=== PATIENT | female | born 1970 | race Caucasian/White ===

== ENCOUNTER → 2016-10-19 | Day surgery (SDC) | payer OTHER ==
[~2016-10-19] MED LIST: BUPIVACAINE HCL PF 0.5% 10 ML VIAL ONE; COLA100C3 PO; DOXY100C PO; DOXY100T17 PO; IBUP800T23 PO; KETOROLAC TROMETHAMINE 30 MG/ML (IVP) VIAL ONE; LACTATED RINGER'S 1000 ML INJ 1,000 ML ONE; MEPERIDINE HCL 25 MG/ML VIAL ONE; MIDAZOLAM HCL 2 MG/2 ML VIAL ONE; ONDANSETRON HCL 4 MG/2 ML VIAL IV PUSH ONE; OXYC1TAB63 PO; PROPOFOL 200 MG/20 ML AMP IV ONE; TAMO20TA4 PO; TAMO20TA6 PO; ceFAZolin 2 GM PREMIX 50 ML ONE
--- NOTE | 2016-10-19 14:15 | TN ---
cc: MAUREEN ROBERTS DATE OF SURGERY: 10/19/2016 PREOPERATIVE DIAGNOSIS Palpable nodule of the right chest wall post mastectomy for breast cancer. POSTOPERATIVE DIAGNOSIS Palpable nodule of the right chest wall post mastectomy for breast cancer. PROCEDURE PERFORMED Excision of right chest wall nodule. SURGEON Maureen Roberts ANESTHESIA General via LMA device. INDICATION The patient is a 46-year-old female who has had a mastectomy with immediate implant reconstruction for breast cancer. She developed a palpable nodule and ultrasound confirmed a 7 x 8 mm hypoechoic nodule extending from the skin to the implant capsule. She now presents for excisional biopsy of the nodule. FINDINGS At the time of surgery there was an easily identified palpable nodule at 8 o'clock, approximately 4 cm from the center of the chest wall. Grossly it resembled scar tissue and did not appear to be a suspicious malignant nodule. PROCEDURE After informed consent was obtained and site verification was performed, the patient was brought to the major operating room where she underwent general anesthesia via an LMA device. The right breast was prepped and draped in sterile fashion. The palpable nodule at 8 o'clock was easily identified and an elliptical incision overlying the nodule was made using sharp dissection. Further sharp and electrocautery dissection was then performed into the subcutaneous tissue and the remainder of the dissection was then performed using electrocautery to preserve the integrity of the implant. A small portion of the implant capsule was also removed and sent separately as a separate specimen and the skin and subcutaneous tissue as well as the implant capsule were then oriented with a stitch on the implant capsule and a second piece had a long suture laterally, a short suture superiorly, and the skin was anterior. Both specimens were sent separately for permanent pathologic evaluation. Hemostasis was easily obtained with electrocautery and the capsule was closed using interrupted 3-0 Vicryl sutures. The subcutaneous tissue was re-approximated using interrupted 3-0 Vicryls and the skin was closed using a 4-0 Monocryl subcuticular suture. Steri-Strips and a sterile dressing were applied. The patient tolerated the procedure well with minimal blood loss and she was extubated in the operating room and brought to the recovery room in good condition. All sponge and needle counts were correct at the conclusion of the case. Maureen Roberts MD CEW/LIZZY /2:02 PM /2:08 PM
== END | disposition home or self-care (01) ==
LOC: ESDC 11:16
PROVIDERS: ATTEND Surgery
DX: C79.81 Secondary malignant neoplasm of breast (principal); Z90.13 Acquired absence of bilateral breasts and nipples
CPT/HCPCS: 00400; 21552; 88305; J0690; J1885; J2175; J2250; J2405; J3010; J7120; 88361

== ENCOUNTER → 2016-11-28 | Outpatient (CLI) | payer OTHER ==
[~2016-11-28] MED LIST changes: -BUPIVACAINE HCL PF 0.5% 10 ML VIAL ONE; -KETOROLAC TROMETHAMINE 30 MG/ML (IVP) VIAL ONE; -LACTATED RINGER'S 1000 ML INJ 1,000 ML ONE; -MEPERIDINE HCL 25 MG/ML VIAL ONE; -MIDAZOLAM HCL 2 MG/2 ML VIAL ONE; -ONDANSETRON HCL 4 MG/2 ML VIAL IV PUSH ONE; -PROPOFOL 200 MG/20 ML AMP IV ONE; -ceFAZolin 2 GM PREMIX 50 ML ONE
[2016-11-28 12:02] LABS: AUTOMATED NEUTROPHIL # 4.9 TH/MM3 (1.8-7.7); BASOPHIL # 0.1 TH/MM3 (0-0.2); BASOPHIL % 0.7 % (0.0-2.0); EOSINOPHIL # 0.1 TH/MM3 (0-0.4); EOSINOPHIL % 1.1 % (0.0-4.0); HEMATOCRIT 41.7 % (35.0-46.0); HEMO FLAGS DIFF FINAL; MEAN CELL VOLUME 83.8 FL (80.0-100.0); MEAN CORPUSCULAR HGB CONC 33.5 % (32.0-36.0); MONO % 8.7 % (0.0-8.0); NEUT % 63.5 % (16.0-70.0); PLATELET COUNT 243 TH/MM3 (150-450); RED BLOOD COUNT 4.98 MIL/MM3 (4.00-5.30); RED CELL DISTRIBUTION WIDTH 13.3 % (11.6-17.2); WHITE BLOOD COUNT 7.7 TH/MM3 (4.0-11.0)
[2016-11-28 12:28] LABS: ANION GAP 10 MEQ/L (5-15); BICARBONATE 26.4 MEQ/L (21.0-32.0); BLOOD UREA NITROGEN 11 MG/DL (7-18); CHLORIDE 106 MEQ/L (98-107); GLOMERULAR FILTRATION RATE 81 ML/MIN (>89); GLUCOSE,FASTING 89 MG/DL (74-99); POTASSIUM 4.3 MEQ/L (3.5-5.1); SODIUM (NA) 142 MEQ/L (136-145)
[2016-11-28 12:32] LABS: BHCG SCREEN QUALITATIVE LESS THAN 1 MIU/ML (0-5)
[2016-11-28 13:26] LABS: BLOOD, URINE NEG (NEG); GLUCOSE,URINE NEG (NEG); KETONE, URINE NEG (NEG); MUCUS URINE FEW /lpf (OCC); NITRITE,URINE NEG (NEG); SQUAMOUS EPITHELIAL CELL URINE 7 /hpf (0-5); URINE COLOR YELLOW (YELLW/STRAW)
== END ==
LOC: CPRE 11:17
PROVIDERS: ATTEND Obstetrics & Gynecology
DX: Z01.812 Encounter for preprocedural laboratory examination (principal); R19.00 Intra-abdominal and pelvic swelling, mass and lump, unspecified site
CPT/HCPCS: 36415; 80048; 81001; 84703; 85025

== ENCOUNTER 2016-12-04 06:13 | Observation (INO) | payer OTHER ==
[~2016-12-04] VITALS: Ht 152.4 cm; Wt 69.0 kg
[2016-12-04] MEDS ORDERED: TAMO20TA6 PO (06:44)
[2016-12-04] MEDS ORDERED: DOXY100C PO (06:44)
[2016-12-04] MEDS ORDERED: ceFAZolin 2 GM PREMIX 50 ML IV SCH (06:45)
[2016-12-04 06:57] VITALS: BP 133/82; PULSE 80; RESP 18; TEMP 98.1; O2SAT 97
[2016-12-04] MEDS ORDERED: LACTATED RINGER'S 1000 ML IV SCH (07:00)
[2016-12-04] MEDS ORDERED: METOPROLOL TARTRATE 25 MG TAB PO PRN (07:00)
[2016-12-04] MEDS ORDERED: SODIUM CHLORID 0.9% 500 ML IV SCH (07:00)
[2016-12-04] MEDS ORDERED: INSULIN HUMAN REGULAR 1,000 UNITS/10 ML VIAL SQ PRN (07:00)
[2016-12-04] MEDS ORDERED: MIDAZOLAM HCL 2 MG/2 ML VIAL ONE (07:07)
[2016-12-04] MEDS ORDERED: fentaNYL CITRATE 250 MCG/5 ML AMP ONE (07:07)
[2016-12-04] MEDS ORDERED: APREPITANT 40 MG CAP ONE (07:33)
[2016-12-04] MEDS ORDERED: FAMOTIDINE 20 MG/2 ML VIAL ONE (07:57)
[2016-12-04] MEDS ORDERED: ACETAMINOPHEN 1000 MG/100 ML VIAL IV ONE (07:57)
[2016-12-04] MEDS ORDERED: BUPIVACAINE/EPINEPHRINE 0.25% 50 ML VIAL INFIL ONE (08:39)
[2016-12-04] MEDS ORDERED: *MEPERIDINE 25 MG INJ VIAL PERIprocedural Use ONLY ONE (11:47)
[2016-12-04] MEDS ORDERED: DO NOT ADM ANY ANTICOAGULANT DRUGS XX PRN (12:00)
[2016-12-04] MEDS ORDERED: ONDANSETRON HCL 4 MG/2 ML VIAL IV PUSH ONE (12:00)
[2016-12-04] MEDS ORDERED: NEOSTIGMINE 3 MG/3 ML SYR IV ONE (12:00)
[2016-12-04] MEDS ORDERED: LACTATED RINGER'S 1000 ML INJ 1,000 ML IV ONE (12:00)
[2016-12-04] MEDS ORDERED: PROPOFOL 200 MG/20 ML AMP IV ONE (12:00)
[2016-12-04] MEDS ORDERED: MEPERIDINE HCL 50 MG/ML VIAL ONE (12:01)
[2016-12-04] MEDS ORDERED: KETOROLAC TROMETHAMINE 30 MG/ML (IVP) VIAL ONE (12:26)
[2016-12-04] MEDS ORDERED: KETOROLAC TROMETHAMINE 30 MG/ML (IVP) VIAL IV PUSH ONE (12:26)
[2016-12-04] MEDS ORDERED: ONDANSETRON HCL 4 MG/2 ML VIAL IV PUSH PRN (12:45)
[2016-12-04] MEDS: oxyCODONE/ACETAMINOPHEN 5 MG/325 MG TAB PO PRN ×2 (14:19→19:43)
[2016-12-04 16:35] VITALS: BP 122/86; PULSE 66; RESP 18; TEMP 98.6
[2016-12-04] MEDS: MEPERIDINE HCL 50 MG/ML VIAL IM PRN ×2 (16:40→22:10)
[2016-12-04 19:43] VITALS: BP 102/66; PULSE 74; RESP 18; TEMP 97.6; O2SAT 100
[2016-12-05 00:39] VITALS: BP 91/57; PULSE 77; RESP 16; TEMP 97.9; O2SAT 94
[2016-12-05] MEDS: oxyCODONE/ACETAMINOPHEN 5 MG/325 MG TAB PO PRN ×3 (01:14→11:43)
[2016-12-05 04:58] VITALS: BP 116/76; PULSE 78; RESP 17; TEMP 97.7; O2SAT 93
--- NOTE | 2016-12-05 07:59 | HHI.PR ---
Subjective Remarks Doing well, pain is well controlled, eating well. Objective Vital Signs Vital Signs Date Time Temp Pulse Resp B/P Pulse Ox O2 Delivery O2 Flow Rate FiO2 12/05/16 04:58 97.7 78 17 116/76 93 12/05/16 00:39 97.9 77 16 91/57 94 12/04/16 19:43 97.6 74 18 102/66 100 12/04/16 16:35 98.6 66 18 122/86 12/04/16 15:00 97.6 82 12 119/70 98 Room Air 12/04/16 14:00 84 12 110/79 97 Room Air 12/04/16 13:30 89 14 119/68 97 Room Air 12/04/16 13:00 77 12 126/75 97 Room Air 12/04/16 12:45 80 12 124/71 97 Room Air 12/04/16 12:30 82 13 123/79 97 Room Air 12/04/16 12:15 92 14 130/81 98 Room Air 12/04/16 12:00 90 15 137/92 100 Room Air 12/04/16 11:45 98.0 113 13 154/98 100 Nasal Cannula 2 I/O 12/04/16 12/04/16 12/04/16 12/05/16 12/05/16 12/05/16 07:00 15:00 23:00 07:00 15:00 23:00 Intake Total 1400 ml 240 ml Output Total 1500 ml 525 ml Balance -100 ml 240 ml -525 ml Intake Oral 240 ml IV Total 1400 ml Output Urine Total 1400 ml 525 ml Estimated Blood Loss 100 ml Objective Remarks Chest is clear, regular rate and rhythm. Abdomen is soft and non-distended. Incisions are clean and dry. Ext no CCE. A/P Assessment and Plan Post Op Day 1 S/P TLH/BSO, frozen benign Doing well Home today and return to office in two weeks. Radha Woodward MD Dec 05, 2016 07:59
[2016-12-05] MEDS ORDERED: OXYC1TAB63 PO (08:03)
[2016-12-05] MEDS ORDERED: COLA100C3 PO (08:03)
[2016-12-05] MEDS ORDERED: IBUP800T23 PO (08:03)
--- NOTE | 2016-12-05 08:04 | HHI.DCPOC ---
Discharge Care Plan Your Health Problems Are: Pelvic pain Report Symptoms to Your Doctor -Temperate above 100.5 degrees -Redness, of incision or excessive or foul smelling drainage -Unusual pain or calf pain -Increased vaginal bleeding -Painful or difficulty urinating -Feelings of extreme sadness or anxiety after 2 weeks Goals to Promote Your Health * To prevent worsening of your condition and complications * To maintain your health at the optimal level Directions to Meet Your Goals Take your medications as prescribed Follow your dietary instruction Follow activity as directed Ensure plenty of rest for recovery Drink fluids for hydration Keep your appointments as scheduled Take your immunizations and boosters as scheduled If your symptoms worsen call your PCP, if no PCP go to Urgent Care Center or Emergency Room Smoking is Dangerous to Your Health. Avoid second hand smoke Call the 24-hour crisis hotline for domestic abuse at Radha Woodward MD Dec 05, 2016 08:04
[2016-12-05 08:27] VITALS: BP 114/78; PULSE 78; RESP 20; TEMP 98.4
[2016-12-05] MEDS: MEPERIDINE HCL 50 MG/ML VIAL IM PRN (08:27)
--- NOTE | 2016-12-05 09:48 | MP ---
cc: MARY HI DATE OF SURGERY 12/04/2016 PREOPERATIVE DIAGNOSIS History of recurrent breast cancer with ovarian cysts and thickened endometrium. POSTOPERATIVE DIAGNOSIS History of recurrent breast cancer with ovarian cysts and thickened endometrium with frozen section reported as benign. PROCEDURE Examination under anesthesia, total laparoscopic hysterectomy, bilateral salpingo-oophorectomy with da Parvez robot followed by cystoscopy. SURGEON Dr. Hi ANESTHESIA General endotracheal anesthesia. FLUIDS 1400 cc crystalloid ESTIMATED BLOOD LOSS 100 cc URINE OUTPUT 350 cc clear yellow at the end of the procedure. FINDINGS Uterus was approximately 10 to 12 weeks in size, fallopian tubes appeared normal. There were bilateral simple appearing ovarian cysts. PROCEDURE The patient was taken to the operating room where general anesthesia was found to be adequate. She was then prepped and draped in the normal sterile fashion in the dorsal lithotomy position. A Hobbs catheter was inserted into the urinary bladder using sterile technique. A weighted speculum was placed in the vagina. A single-toothed tenaculum applied to the anterior lip of the cervix. The tenaculum was replaced with a suture and the tenaculum was removed. The medium V-Care uterine manipulator was then placed through the cervix. The balloon was inflated. The cups were positioned. The weighted speculum was removed. The gloves were changed and attention was turned to the abdominal portion of the procedure. The patient was positioned and trocars were placed according to Dr. Hutchinson' preferences. A 5-mm incision was made above the umbilicus and a 5-mm trocar and camera were inserted into the abdominal cavity under direct visualization. The abdomen was insufflated with approximately 3-1/2 liters of CO2 gas. Two 8-mm trocars were then placed approximately 8-cm laterally to the camera port and an academic support assistant 10/12-mm trocar was placed in the left lower quadrant under direct visualization. The camera port was then changed to a 10/12-mm trocar. The da Parvez was then docked in between the patient's legs. Monopolar scissor was placed in instrument arm one and a fenestrated bipolar was placed in instrument arm two. The round ligaments were cauterized and transected bilaterally. The bladder flap was then created using the monopolar scissors and the bladder was gently dissected off the anterior surface of the uterus and cervix. There were several omental adhesions to the anterior abdominal wall and these were lysed with the monopolar scissors. The left infundibulopelvic ligament was identified and cauterized with the fenestrated bipolar and transected with the monopolar scissors. The fallopian tube was then transected from the broad ligament using the monopolar scissors. The remaining broad ligaments and uterine artery was cauterized and transected on the left using the fenestrated bipolar and the monopolar scissors down to the level of the cervix. The vessel sealer was then placed in instrument arm one to assist with the transection of the infundibulopelvic ligament on the right side and this was performed, as well as transecting the fallopian tube from the broad ligament and cauterizing and transecting the broad ligament and uterine artery on the right side down to the level of the cervix. The vessel sealer was then switched out for the monopolar scissors and the monopolar scissors were used to create the colpotomy incision circumferentially around the cervix using the V-Care as a guide. The entire specimen was then removed vaginally and sent for frozen section which was reported as benign by Dr. Pleitez. A 30 cc bulb on a Hobbs catheter was then used to occlude the vagina. The instruments were exchanged for a suture cut needle cdl dedicated truck driver and a kavon needle cdl dedicated truck driver and four interrupted sutures were then placed with 0-Vicryl to close the vaginal cuff. Hemostasis was assured. The instruments were removed. The da Parvez was undocked. The 10/12-mm incisions in the fascia and peritoneum were closed using the suture passer provided. The trocars and instruments were removed. The gas was allowed to escape. The skin incisions were closed with 4-0 Monocryl. The vaginal occluding device was removed. The Hobbs was used to instill approximately 250 cc of saline into the bladder. The Hobbs catheter was removed. Cystoscopy was performed and urine was noted to be effluxing from both of the ureteral meatuses. The cystoscope was removed. The Hobbs catheter was replaced. The sponge, lap, needle and instrument counts were correct. The patient was awakened from anesthesia and transferred to recovery room in stable condition. Pathology was uterus, cervix, bilateral fallopian tubes, and bilateral ovaries. MD ISAAC Zelaya/MINGO /11:46 AM /9:35 AM
[2016-12-05] MEDS: IBUPROFEN 800 MG TAB PO PRN ×2 (11:43→19:12)
[2016-12-05] MEDS ORDERED: SIMETHICONE 80 MG CHEWABLE TAB PO PRN (12:45)
[2016-12-05] MEDS ORDERED: SODIUM CHLORID 0.9% 500 ML INJ 500 ML IV ONE (13:00)
[2016-12-05 14:00] VITALS: BP_SYST 145; BP_SYST 149; BP_DIAS 92; BP_DIAS 94; PULSE 78; RESP 20
--- NOTE | 2016-12-05 14:46 | RADRPT ---
EXAM DATE/TIME: 12/05/2016 14:05 [facility] COMPARISON: No previous studies available for comparison. INDICATIONS : Bruising in legs. MEDICAL HISTORY : Right breast CA. Dyspnea. SURGICAL HISTORY : section. Bilateral masectomy. Fibroid removal. ENCOUNTER: Initial ACUITY: 1 day PAIN SCORE: 0/10 LOCATION: Left leg. TECHNIQUE: Venous ultrasound of the leg was performed from the inguinal ligament to the proximal calf. Real-ro e, color Doppler and spectral tracing, compression and augmentation techniques were used. FINDINGS: There is normal compressibility of the deep venous system from the inguinal region to the proximal ca lf. No echogenic clot is seen in the lumen of the common femoral, femoral, popliteal, and posterior tibial veins. There is a normal response of the venous system to proximal and distal augmentation an d respiration. CONCLUSION: No DVT in the left lower extremity. Vinicius Nevarez MD on December 05, 2016 at 14:44 Board Certified Radiologist. This report was verified electronically.
[2016-12-05 16:57] VITALS: BP 130/88; PULSE 78; RESP 20; O2SAT 94
[2016-12-05 19:15] VITALS: BP 102/63; PULSE 77; RESP 18; TEMP 98.1; O2SAT 94
[2016-12-05 21:46] LABS: AUTOMATED NEUTROPHIL # 3.6 TH/MM3 (1.8-7.7); BASOPHIL % 0.4 % (0.0-2.0); EOSINOPHIL # 0.2 TH/MM3 (0-0.4); EOSINOPHIL % 2.2 % (0.0-4.0); HEMATOCRIT 34.7 % (35.0-46.0); HEMO FLAGS DIFF FINAL; LYMPH % 35.3 % (9.0-44.0); LYMPHOCYTE # 2.4 TH/MM3 (1.0-4.8); MEAN CELL VOLUME 83.7 FL (80.0-100.0); MEAN CORPUSCULAR HEMOGLOBIN 28.2 PG (27.0-34.0); MEAN CORPUSCULAR HGB CONC 33.6 % (32.0-36.0); NEUT % 52.1 % (16.0-70.0); PLATELET COUNT 226 TH/MM3 (150-450); RED BLOOD COUNT 4.14 MIL/MM3 (4.00-5.30); RED CELL DISTRIBUTION WIDTH 13.3 % (11.6-17.2); WHITE BLOOD COUNT 6.9 TH/MM3 (4.0-11.0)
[2016-12-05 22:05] LABS: ALKALINE PHOSPHATASE 53 U/L (45-117); ALT (GPT) 14 U/L (10-53); AST (GOT) 15 U/L (15-37); BICARBONATE 25.3 MEQ/L (21.0-32.0); BLOOD UREA NITROGEN 4 MG/DL (7-18); CHLORIDE 105 MEQ/L (98-107); GLOMERULAR FILTRATION RATE 88 ML/MIN (>89); POTASSIUM 3.9 MEQ/L (3.5-5.1); SODIUM (NA) 137 MEQ/L (136-145); TOTAL BILIRUBIN ADULT 0.3 MG/DL (0.2-1.0)
[2016-12-05 22:06] LABS: ANION GAP 7 MEQ/L (5-15)
[2016-12-06] VITALS: BP 105/62; PULSE 71; RESP 16; TEMP 98.2; O2SAT 95
[2016-12-06] MEDS: IBUPROFEN 800 MG TAB PO PRN ×2 (01:07→08:54)
[2016-12-06 04:00] VITALS: BP 91/58; PULSE 91; RESP 16; TEMP 98.5; O2SAT 94
[2016-12-06 07:46] VITALS: BP 113/80; PULSE 80; RESP 16; TEMP 98.4
--- NOTE | 2016-12-06 08:17 | HHI.PR ---
Subjective Remarks Doing well, pain is well controlled, eating well. Objective Vital Signs Vital Signs Date Time Temp Pulse Resp B/P Pulse Ox O2 Delivery O2 Flow Rate FiO2 12/06/16 07:46 98.4 80 16 113/80 12/06/16 04:00 98.5 91 16 91/58 94 12/06/16 00:00 98.2 71 16 105/62 95 12/05/16 19:15 98.1 77 18 102/63 94 12/05/16 16:57 78 20 130/88 94 12/05/16 14:00 78 20 145/92 149/94 12/05/16 08:27 98.4 78 20 114/78 I/O 12/05/16 12/05/16 12/05/16 12/06/16 12/06/16 12/06/16 07:00 15:00 23:00 07:00 15:00 23:00 Output Total 525 ml 575 ml 1300 ml Balance -525 ml -575 ml -1300 ml Output Urine Total 525 ml 575 ml 1300 ml Result Diagram: 12/05/16213112/05/162131 Objective Remarks Chest is clear, regular rate and rhythm. Abdomen is soft and non-distended. Incisions are clean and dry. Ext no CCE. A/P Assessment and Plan Post Op Day 2 S/P TLH/BSO, frozen benign Doing well Home today and return to office in two weeks. Radha Woodward MD Dec 06, 2016 08:16
== END 2016-12-06 09:00 | disposition home or self-care (01) ==
LOC: HSDC 06:13 → H1EA 11:32
PROVIDERS: ADMIT Obstetrics & Gynecology; ATTEND Obstetrics & Gynecology
DX: N80.0 Endometriosis of uterus (principal); D27.1 Benign neoplasm of left ovary; N83.02 Follicular cyst of left ovary; Z85.3 Personal history of malignant neoplasm of breast; Z90.13 Acquired absence of bilateral breasts and nipples
CPT/HCPCS: 80053; 85025; 86850; 86900; 86901; 88307; 88331; 93971; G0378; J0131; J0690; J1885; J2175; J2250; J2405; J2710; J3010; J7040; J7120; J8501